=== PATIENT | male | born 1945 | race Caucasian/White ===

== ENCOUNTER → 2018-09-29 12:42 | Outpatient (CLI) | payer MEDICARE, OTHER, SELFPAY ==
--- NOTE | 2018-09-29 | DI.MRI.S_ITS ---
PROCEDURE: MR STROKE Pre- and post-contrast brain MRI, non-contrast brain MR angiogram, pre- and postcontrast neck MR angiogram INDICATIONS: dysarthria and anarthria TECHNIQUE: Brain: Noncontrast axial T1 spin echo, axial T2 fast spin echo, sagittal and axial FLAIR, coronal T2 fast spin echo, axial gradient echo, axial diffusion and ADC through the brain. After the administration of contrast, axial 3D VIBE of the cranial vasculature and brain. Brain MRA: Non-contrast 3-D time of flight MR angiogram, with multiple ozcfeuf-nxnnmffby-rwrknvmxgv (MIP) reformats performed. Neck MRA: Axial and sagittal TruFISP through the neck. Coronal dynamic MR angiogram during administration of contrast in the arterial and venous phases, with 3-dimenstional fesgvod-qqjvwcehe-zueqoeteur (MIP) reformats constructed from subtraction images. COMPARISON: None. FINDINGS: Image quality: Excellent. BRAIN: CSF spaces: Ventricles are normal in size and shape. Basal cisterns are patent. No extra-axial fluid collections. Brain: No intracranial bleeds or mass effects. Marr-white matter interface is normal. Diffusion weighted images show no acute ischemic insults. Brainstem appears normal. Normal intravascular flow voids are present. No abnormal intracranial enhancement. Skull and face: Calvarial marrow signal is normal. Orbits appear normal. Sinuses: Sinuses and mastoids are clear. BRAIN MR ANGIOGRAM: Anterior circulation: Intracranial internal carotid arteries are normal in size and enhancement. The flow within the paired anterior cerebral arteries is normal and symmetric. The flow within the middle cerebral arteries is normal and symmetric. The anterior communicating artery is seen. No stenoses, occlusions, or aneurysms. Posterior circulation: The visualized portions of the vertebral arteries demonstrate normal caliber, and join to form a normal appearing basilar artery. The flow within the posterior cerebral arteries is normal and symmetric. No stenoses, occlusions, or aneurysms. NECK MR ANGIOGRAM: Carotids: Great vessels demonstrate a conventional anatomy as they arise from the aortic arch. The origins of the common carotid arteries appear patent. The calibers and courses of both common carotid arteries are normal. The bifurcation regions appear normal bilaterally. The internal carotid arteries demonstrate normal course and caliber. Posterior circulation: The origins of the vertebral arteries appear patent. More superior portions of both vertebral arteries demonstrate normal course and caliber, and join to form a normal appearing basilar artery. Miscellaneous: Subclavian arteries appear patent. Pre-contrast images through the neck show no soft tissue abnormalities. IMPRESSION: BRAIN MRI: Mild microvascular atherosclerotic change in the deep white matter of each hemisphere, expected for age. No evidence of acute or subacute stroke, or underlying prior ischemic injury from the distant past. BRAIN MR ANGIOGRAM: Normal intracranial MR angiogram. NECK MR ANGIOGRAM: Minimal atherosclerotic narrowing at the proximal internal carotid arteries, no significant stenosis. Vertebral arterial flow appears mildly left vertebral dominant, a normal anatomic variant. Dictated by: Dann Carney M.D. on 09/29/2018 at 14:10 Approved by: Dann Carney M.D. on 09/29/2018 at 14:14
== END ==
PROVIDERS: PCP Internal Medicine; Visit Provider Internal Medicine
DX: R47.1 Dysarthria and anarthria (principal)
CPT/HCPCS: 70548; 70553; A9579

== ENCOUNTER 2019-01-07 09:30 | Outpatient (RCR) | payer MEDICARE, OTHER, SELFPAY ==
--- NOTE | 2018-10-03 15:42 | ST.OPIE ---
Provider Information Visit Care Team Role Provider Type Star Sam MD Attending Provider Physician Primary Care Provider Specialty: Internal Medicine Address: [address] [place] [address], [id number] Email: Speech-Language Pathology Initial Evaluation TRENCH DIGGER Motor Speech Evaluation Start: 10/03/18 07:43 Freq: Status: Active Protocol: Document 09/30/18 09:30 TLC (Rec: 10/03/18 08:32 TLC [id number]) Motor Speech Evaluation Session Time Visit Start Time 09:30 Visit Stop Time 10:15 Total Visit Minutes 45 Visit Information Visit Number 1 Plan of Care Dates 09/30/18-12/31/18 Insurance Information Medicare Setting Setting Outpatient Care Next Note Type Next Note Type Treatment Note Patient History Source: [employer] ([employer]). Patient History Mr. Hopkins presents with onset of difficulty speaking which began approximately two years ago. Initially, he thought the problem was related to sinus drainage, but this was ruled out following a visit to an ENT. He has also had an MRI which was negative. Work-up to determine cause of symptoms is ongoing. He has a medical history of back pain, diabetes , dizziness, neuropathy, varicose veins and kidney problems. Referral Referring Physician Dr. Sam Reason for Referral Dysarthria Mental Status Mental Status Alert Responsive Cooperative Subjective Observations Subjective Mr. Hopkins arrived on time for the evaluation. Oral Motor Lips Function WFL Observation at rest Mild left facial droop, thought patient had not noticed Tongue Function Mild Impairment Protrusion difficulty with alternating protrusion/retraction Lateralization reduced Jaw Function WFL Soft Palate Function WFL Respiration/Phonation Tools Observations Mouth breather Phonation Stimulus Conversation, reading, sustained phonation Quality Breathy Other Patient reports feeling of strained voice Duration Sustained phonation of ah - 12 sec (average across 3 trials) - reduced Function Mildly Impaired Loudness Reduced Loudness Oral Reading Stimulus Grandfather Passage Quality Breathy Duration 2:07 minutes, ~67 wpm - reduced (normal 150-160 wpm) Function Moderately Impaired Loudness Reduced Loudness Diadochokinetic Rates P^ Quality Moderate Impairment T^ Quality Moderate Impairment K^ Quality Moderate Impairment P^T^K^ Quality Moderate Impairment Comments precise but slowed, 8 repetitions in 20 seconds Speech Intelligibility Phoneme Severity WFL Word Severity Mildly Impaired Comments Occasional articulatory errors during word repetition Sentence Severity Mildly Impaired Comments Slowed rate Conversation Severity Mildly Impaired Awareness/Strategy Use Description Type of awareness/use Uses intermittently Other Uses slow rate to compensate for articulatory imprecision Findings Details Motor Speech Function Mild-Moderate Impairment Assessment Details Assessment Mr. Hopkins presents with mild- moderate dysarthria characterized by reduced loudness, strained, breathy vocal quality, imprecise articulation and reduced rate of speech. As a result of this , Mr. 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 He would like to improve his speech rate, precision and volume in order to feel confident enough to resume his position on multiple boards and return to public speaking. Prognosis Rehabilitation Potential Good Recommendations Treatment Recommended Yes Frequency 1x/month due to patient's living arrangements Short Term Goals Mr. Hopkins will participate in breath support exercises as recommended in order to improve respiratory support for speech. Mr. Hopkins will demonstrate improve respiratory support and the use of respiration for the production of speech by increasing sustained phonation time from 12 seconds to 15 seconds. Mr. Hopkins will articulate consonants at the sentence level with out cues in order to increase articulatory precision and intelligibility in conversational speech. Mr. Hopkins will increase reading and speech rate from ~ 67 wpm to ~90 wpm with the use of external supports (pacing board, metronome) as needed. Assisted Goals Without external cues, Mr. Hopkins will use functional communication skills for social interactions with both familiar and unfamiliar partners. Patient/Family Education Education Patient Understanding
--- NOTE | 2018-10-29 11:07 | ST.OPTN ---
Care Team Visit Care Team Role Provider Type Star Sam MD Attending Provider Physician Primary Care Provider Address: [address] [place] [address], [id number] DRAW IN HAND Treatment Note DRAW IN HAND Treatment Note Start: 10/03/18 07:43 Freq: Status: Active Protocol: Document 10/29/18 13:30 TLC (Rec: 10/30/18 11:07 TLC [id number]) Speech Pathology Treatment Note Session Time Visit Start Time 13:30 Visit Stop Time 14:18 Total Visit Minutes 48 Visit Information Visit Number 2 Plan of Care Dates 09/30/18-12/31/18 Visit Type Note Type Treatment Note Next Note Type Next Note Type Treatment Note General Information General Information Mr. Hopkins presents with onset of difficulty speaking which began approximately two years ago. Initially, he thought the problem was related to sinus drainage, but this was ruled out following a visit to an ENT. He has also had an MRI which was negative. Work-up to determine cause of symptoms is ongoing. Notes obtained from his PCP, DR. Sam indicate medical history significant for cerebrovascular event considered ischemic which affected his speech. He has a medical history of back pain, diabetes, dizziness, neuropathy, varicose veins and kidney problems. Subjective Identification Type Name Observations/Patient Presentation Mr. Hopkins arrived on time and was cooperative during the session. Chief Complaint(s) Speech Patient Knowledge/Awareness of DRAW IN HAND Role Good in Treatment Objective Short Term Goals Mr. Hopkins will participate in breath suport exercises as recommended in order to improve respiratory support for speech. Mr. Hopkins will demonstrate improve respiratory support and the use of respiration for the production of speech by increasing sustained phonation time from 12 seconds to 15 seconds. Mr. Hopkins will articulate consonants at the sentence level with out cues in order to increase articulatory precision and intelligibility in conversational speech. Mr. Hopkins will increase reading and speech rate from ~ 67 wpm to ~90 wpm with the use of external supports (pacing board, metronome) as needed. Half-Way Goals Without external cues, Mr. Hopkins will use functional communication skills for social interactions with both familiar and unfamiliar partners. Treatment Activities Education provided regarding diaphragmatic breathing and exercises for breath support. Contrastive stress exercises and reading rhymes were used to target intonation. Visual cues (damián of words) used and verbal feedback provided as needed. Assessment Patient Response to Treatment Good Rehab Potential Fair Impairments Identified Articulation Speech Intelligibility Vocal Quality Assessment of Overall Progress Unchanged Assessment of Improvement Mr. Hopkins reports difficulty with inhaling through his nose during diaphragmatic breathing due to clogging of his nostrils. Reviewed with Patient Goals Home Exercise Program Patient/Caregiver Understanding Good Plan Amount of Therapy Recommended 6 Months Comment Once a month per patient request Length of Session 45 Minutes Therapy Recommendations Continue with Current Program
--- NOTE | 2018-11-26 15:47 | ST.OPTN ---
Visit Care Team Role Provider Type Star Sam MD Attending Provider Physician Primary Care Provider Address: [address] [place] [address], [id number] RECORD CHANGER Treatment Note RECORD CHANGER Treatment Note Start: 10/03/18 07:43 Freq: Status: Active Protocol: Document 11/26/18 15:18 TLC (Rec: 11/26/18 15:47 TLC [id number]) Speech Pathology Treatment Note Session Time Visit Start Time 12:30 Visit Stop Time 13:15 Total Visit Minutes 45 Visit Information Visit Number 3 Plan of Care Dates 09/30/18-12/31/18 Visit Type Note Type Treatment Note Next Note Type Next Note Type Progress Note General Information General Information Mr. Hopkins presents with dysarthria and dysphonia of unknown cause which began appriximately 2 years ago. Initially, he thought the problem was related to sinus drainage, but this was ruled out following a visit to an ENT. He has also had an MRI which was negative for acute stroke. Patient has history of stroke ~15 years ago without dysarthria or dysphonia at that time. Work-up to determine cause of symptoms is ongoing. He has a medical history of back pain, diabetes , dizziness, neuropathy, varicose veins and kidney problems. Chart note review from Dr. Molina, ENT reports normal mobility and no lesions of the true vocal folds, generally narrowed airway due to lateral wall collapse. Recommendations were made for swallow study, neurology consult, speech language pathology. Mathew has not followed up with Dr. Molina since this visit in December of 2017. He has not had a neurology consult. Results of Barium swallow indicated small reduced hiatal hernia and likely a prominent B ring which did not allow for immediate passage of a 13mm barium tablet. Esophageal peristalsis was normal and no elicited gastroesophageal reflux was observed. Subjective Identification Type Name Observations/Patient Presentation Mr. Hopkins arrived on time. He is scheduled for a neurology consult next month. Chief Complaint(s) Speech Patient Knowledge/Awareness of RECORD CHANGER Role Good in Treatment Objective Short Term Goals Mr. Hopkins will participate in breath support exercises as recommended in order to improve respiratory support for speech. Mr. Hopkins will demonstrate improve respiratory support and the use of respiration for the production of speech by increasing sustained phonation time from 12 seconds to 15 seconds. Mr. Hopkins will articulate consonants at the sentence level with out cues in order to increase articulatory precision and intelligibility in conversational speech. Mr. Hopkins will increase reading and speech rate from ~ 67 wpm to ~90 wpm with the use of external supports (pacing board, metronome) as needed. Software Systems Engineer Goals Without external cues, Mr. Hopkins will use functional communication skills for social interactions with both familiar and unfamiliar partners. Treatment Activities Mathew reports he has been compliant with diaphragmatic breathing exercises (~15 minutes/day), but reports it has not gotten easier to complete. He has difficult yiwht slow controlled inhalation and exhalation and is generally only able to sustain inhalation for 3-4 seconds. Sustained phonation remains ~10 seconds. Speech continues to be breathy and slow with reduced prosody and occasional nasality observed, especially during sustained phonation. No nasal escape of air observed. He denies nasal leakage of food/drinks. We discussed anatomy and physiology of the vocal folds and breath support required for speech. His symptoms could be consistent with reduced mobility of the vocal folds, but again etiology of dysarthria/dysphonia is unclear making development of treatment plan difficult. At this time, I am recommending we follow up after his neurology appointment. I also recommend he follow-up with ENT given worsening dysphonia over the last year and ongoing complaints of chronic sinus drainage. Assessment Patient Response to Treatment Good Rehab Potential Fair Impairments Identified Articulation,Speech Intelligibility,Vocal Quality Assessment of Overall Progress Unchanged Assessment of Improvement No improvements with implementation of daily diaphragmatic breathing exercises. No worsening of symptoms. Ongoing dysarthria and dysphonia characterized by noticeably slow, breathy speech with reduced articulatory precision. Reviewed with Patient Goals,Home Exercise Program Patient/Caregiver Understanding Good Plan Comment Return in 1 month after neurology consult
--- NOTE | 2019-01-07 11:05 | ST.OPDS ---
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 Hopkins presents with dysarthria and dysphonia of unknown cause which began appriximately 2 years ago. Initially, he thought the problem was related to sinus drainage, but this was ruled out following a visit to an ENT. He has also had an MRI which was negative for acute stroke. Patient has history of stroke ~15 years ago without dysarthria or dysphonia at that time. Work-up to determine cause of symptoms is ongoing. He has a medical history of back pain, diabetes , dizziness, neuropathy, varicose veins and kidney problems. Chart note review from Dr. Molina, ENT reports normal mobility and no lesions of the true vocal folds, generally narrowed airway due to lateral wall collapse. Recommendations were made for swallow study, neurology consult, speech language pathology. Mathew has not followed up with Dr. Molina since this visit in December of 2017. He has not had a neurology consult. Results of Barium swallow indicated small reduced hiatal hernia and likely a prominent B ring which did not allow for immediate passage of a 13mm barium tablet. Esophageal peristalsis was normal and no elicited gastroesophageal reflux was observed. Subjective Identification Type Name Observations/Patient Presentation Mr. Hopkins arrived on time. 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 Hopkins will participate in breath support exercises as recommended in order to improve respiratory support for speech.- GOAL MET Mr. Hopkins will demonstrate improve respiratory support and the use of respiration for the production of speech by increasing sustained phonation time from 12 seconds to 15 seconds. - NOT MET Mr. Hopkins will articulate consonants at the sentence level with out cues in order to increase articulatory precision and intelligibility in conversational speech. - GOAL MET Mr. Hopkins will increase reading and speech rate from ~ 67 wpm to ~90 wpm with the use of external supports (pacing board, metronome) as needed. - NOT MET Treatment Activities Obtained report from neurologist Dr. 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 Genetic testing was recommended but is not covered by insurance and he has been unable to get a quote for the toney of this. Mr. Hopkins is scheduled for an EMG and f/u with Dr. Posada next month. A clinical swallow evaluation was completed today. Mathew was observed to cough during both trials of consecutive cups sips of water . He denies coughing/choking during meals at home. No signs of aspiration during single sips of water. Education provided re: safe swallow strategies, general swallow anatomy. Assessment Patient Response to Treatment Good Rehab Potential Fair Impairments Identified Articulation,Speech Intelligibility,Vocal Quality Assessment of Overall Progress Unchanged Assessment of Improvement Mr. Hopkins reports improvements in voice and speech after starting to drink hot tea which was recommended by ENT, Dr. Vega Mccall of [facility]. Overall, his symptoms have slightly improved and he denies any worsening of symptoms since we last met. He continues to implement dysarthria speaking strategies and his speech is > 90% intelligible when implementing slow rate to compensate for articulatory imprecision. Reviewed with Patient Goals,Home Exercise Program Patient/Caregiver Understanding Good Plan Amount of Therapy Recommended No Further Therapy Comment At this time Therapy Recommendations Discharge from Speech Therapy Comment Follow-up as needed once patient has confirmed diagnosis
== END 2019-03-20 10:22 | disposition home or self-care (01) ==
LOC: SP 09:30
PROVIDERS: PCP Internal Medicine; Visit Provider Internal Medicine
DX: R47.1 Dysarthria and anarthria (principal)
CPT/HCPCS: 92507; 92522; 92610

== ENCOUNTER → 2019-02-05 09:40 | Outpatient (CLI) | payer MEDICARE, OTHER, SELFPAY ==
--- NOTE | 2019-02-05 | DI.US.S_ITS ---
PROCEDURE: US ARTERIAL DUPLEX LE BI INDICATIONS: PERIPHERAL VASCULAR DISEASE, UNSPECIFIED TECHNIQUE: Color and pulse Doppler interrogation was performed of both lower extremity arterial systems, with image documentation. COMPARISON: None. FINDINGS: Right lower extremity: Common femoral artery: 140 cm/sec, with biphasic flow. Deep femoral artery: 136 cm/sec, with biphasic flow. Proximal superficial femoral artery: 87 cm/sec, with biphasic flow. Mid superficial femoral artery: 101 cm/sec, with biphasic flow. Distal superficial femoral artery: 76 cm/sec, with biphasic flow. Popliteal artery: 87 cm/sec, with biphasic flow. Posterior tibial artery: 184 cm/sec, with biphasic flow. Anterior tibial artery/dorsalis pedis: 172 cm/sec, with monophasic/biphasic flow. Marr-scale imaging description: Scattered areas of wall calcification is are present. Left lower extremity: Common femoral artery: 154 cm/sec, with biphasic flow. Deep femoral artery: 61 cm/sec, with biphasic flow. Proximal superficial femoral artery: 113 cm/sec, with a biphasic flow. Mid superficial femoral artery: 78 cm/sec, with biphasic flow. Distal superficial femoral artery: 71 cm/sec, with biphasic flow. Popliteal artery: 87 cm/sec, with biphasic flow. Posterior tibial artery: 22 cm/sec, with monophasic flow. Anterior tibial artery/dorsalis pedis: 120 cm/sec, with monophasic flow. Marr-scale imaging description: Scattered areas of calcification are present. There is incidental note of a nonocclusive thrombus within the left tibial varicose veins. IMPRESSION: 1. Monophasic flow within the distal aspect of the extremities bilaterally suggestive of small vessel disease. Dictated by: Zena Tuttle M.D. on 02/05/2019 at 15:40 Approved by: Zena Tuttle M.D. on 02/05/2019 at 15:43
--- NOTE | 2019-02-05 | DI.US.S_ITS ---
PROCEDURE: US ARTERIAL DUPLEX UE BI INDICATIONS: PERIPHERAL VASCULAR DISEASE, UNSPECIFIED TECHNIQUE: Color and pulse Doppler interrogation was performed of left and right upper extremity arterial systems, with image documentation. COMPARISON: None. FINDINGS: Right upper extremity: Subclavian artery (proximal):105 cm/sec, with triphasic flow. Subclavian artery (distal): 99 cm/sec, with biphasic flow. Axillary artery: 112 cm/sec, with biphasic flow. Brachial artery (proximal): 117 cm/sec, with biphasic flow. Brachial artery (distal): 113 cm/sec, with biphasic flow. Radial artery (proximal): 93 cm/sec, with biphasic flow. Radial artery (distal): 92 cm/sec, with biphasic flow. Ulnar artery (proximal): 31 cm/sec, with biphasic flow. Ulnar artery (distal): 15 cm/sec, with biphasic flow. Marr-scale imaging description: Scattered plaque most notable distally. Left upper extremity: Subclavian artery (proximal): 132 cm/sec, with triphasic flow. Subclavian artery (distal): 83 cm/sec, with biphasic flow. Axillary artery: 96 cm/sec, with biphasic flow. Brachial artery (proximal): 120 cm/sec, with biphasic flow. Brachial artery (distal): 80 cm/sec, with biphasic flow. Radial artery (proximal): 96 cm/sec, with biphasic flow. Radial artery (distal): 89 cm/sec. with biphasic flow. Ulnar artery (proximal): 15 cm/sec, with monophasic flow. . Ulnar artery (distal): 24 cm/sec. with monophasic flow. Marr-scale imaging description: Scattered plaque most notable distally IMPRESSION: Monophasic flow distally suggestive of small vessel disease. Dictated by: Zena Tuttle M.D. on 02/05/2019 at 15:43 Approved by: Zena Tuttle M.D. on 02/05/2019 at 15:47
== END ==
PROVIDERS: PCP Internal Medicine; Visit Provider Internal Medicine
DX: I73.9 Peripheral vascular disease, unspecified (principal)
CPT/HCPCS: 93925; 93930